=== PATIENT | female | born 1940 | race Caucasian/White ===

== ENCOUNTER 2017-03-22 11:09 | Emergency (ER) | payer OTHER, MEDICARE ==
[~2017-03-22] VITALS: Ht 160 cm; Wt 65.3 kg
[2017-03-22] MEDS ORDERED: PRAVASTATIN SOD10 M2 PO (11:26)
[2017-03-22] MEDS ORDERED: NIFEDIPINE ER60 M1 PO (11:26)
--- NOTE | 2017-03-22 11:49 | ED CARDIAC/CP/PALPITATIONS ---
History of Present Illness General Chief Complaint: General Adult Stated Complaint: HIGH BP Source: patient, old records Exam Limitations: no limitations Vital Signs & Intake/Output Vital Signs & Intake/Output ED Intake and Output 03/23 0000 03/22 1200 Intake Total Output Total Balance Patient 144 lb Weight Allergies Coded Allergies: sesame seed (UNKNOWN 03/22/17) Reconcile Medications Hydrochlorothiazide 25 MG TABLET 1 TAB PO DAILY htn Nifedipine (Nifedipine ER) 60 MG TABLET.ER 1 TAB PO DAILY BP (Reported) Pravastatin Sodium 10 MG TABLET 1 TAB PO DAILY CHOLESTEROL (Reported) Triage Note: PT SENT FROM [facility] FOR ELEVATED BP. MANUAL AT THIS TIME 188/112 , DENIES HEADACHE TODAY BUT HAD ONE THE PAST 2 DAYS. ALSO HAD R EAR RINGING THIS AM WHICH IS GONE NOW. DENIES CP/SOB. Triage Nurses Notes Reviewed? yes Onset: Abrupt Duration: day(s): (1), better, constant Timing: single episode today Quality/Severity: mild Activities at Onset: none Associated Symptoms: denies HPI: The 6-year-old female history of hypertension, high cholesterol presents to ER for evaluation after she had a well checkup appointment with her primary care this morning was found to be hypertensive. In the office the patient states her blood pressure was 220 systolic. She states over the past 3 days she's had intermittent posterior headache and ringing in her right ear that has since resolved and been improved with Tylenol. She denies any vision changes blurry vision double vision chest pain palpitations dizziness lightheadedness. She's been compliant with her nifedipine which he is been on no recent adjustments in her dosage. She is otherwise without any complaints at this time PT SENT FROM [facility] FOR ELEVATED BP. MANUAL AT THIS TIME 188/112 , DENIES HEADACHE TODAY BUT HAD ONE THE PAST 2 DAYS. ALSO HAD R EAR RINGING THIS AM WHICH IS GONE NOW. DENIES CP/SOB. (ARPAN ESCOBAR) Past History Travel History Traveled to [place] past 21 day No Medical History Any Pertinent Medical History? see below for history Neurological: NONE EENT: NONE Cardiovascular: hypertension, hyperlipidemia Respiratory: NONE Gastrointestinal: NONE Hepatic: NONE Renal: NONE Musculoskeletal: NONE Psychiatric: NONE Endocrine: NONE Blood Disorders: NONE Cancer(s): NONE RETORT OPERATOR/Reproductive: NONE Surgical History Surgical History: non-contributory Psychosocial History What is your primary language Wolof Tobacco Use: Never used ETOH Use: denies use Illicit Drug Use: denies illicit drug use Family History Hx Contributory? No (ARPAN ESCOBAR) Review of Systems Review of Systems Constitutional: Reports: see HPI. Comments Review of systems: See HPI, All other systems negative. Constitutional, no chills no fever, no malaise HEENT: No visual changes no sore throat no congestion, Cardiovascular: No chest pain , no palpitation Skin: no rashes, no change in skin Respiratory: No dyspnea no cough no sputum GI: No nausea no vomiting, no diarrhea, : No dysuria Muscle skeletal: No joint pain, no joint swelling, no back pain, no neck pain, Neurologic: No numbness no confusion, headache Psych: No stress Heme/endocrine: No bruising no bleeding Immunology: No lymphadenopathy (ARPAN ESCOBAR) Physical Exam Physical Exam General Appearance: well developed/nourished, no apparent distress, alert, awake , comfortable Cardiovascular: regular rate/rhythm Comments: Well-developed well-nourished person in no acute distress Head/Face: Atraumatic, no maxillary/frontal sinus tenderness, no facial swelling Eyes: PERRL, EOMI, no conjunctival injection. No nystagmus Ear:External auditory canal and Tympanic membranes clear, no erythema, no FB. Nose: atraumatic.Normal inspection: No bleeding Throat: Moist mucous membranes.Pharynx normal. No pharyngeal erythema/exudate seen. No stridor/drooling or assymetry. No swelling or edema. Neck: Supple, no lymphadenopathy, FROM Neck: Supple, no lymphadenopathy, normal range of motion Back: Nontender, no CVA tenderness. Full range of motion Cardiovascular: Regular rate and rhythms no murmurs rubs Respiratory: No respiratory distress. Patient speaking in full complete sentences. Breath sounds clear to auscultation bilaterally: NO W/R/R Abdomen: Soft, nontender nondistended Extremity: No edema, full range of motion of extremities Neuro: Alert oriented x3, motor sensory normal, cranial nerves II through XII grossly intact. There were no obvious focal neurologic abnormalities. Skin: No appreciable rash on exposed skin, skin is warm and dry. Psych: Mood and affect is normal, memory and judgment is normal. Core Measures ACS in differential dx? No Severe Sepsis Present: No Septic Shock Present: No (ARPAN ESCOBAR) Progress Differential Diagnosis: AMI, HYPERTENSIVE URGENCY VERSUS EMERGENCY, ELECTROLYTE ABNORMALITY, ACUTE KIDNEY INJURY Plan of Care: Orders Procedure Date/time Status TROPONIN LEVEL 03/22 1148 Complete COMPREHENSIVE METABOLIC PANEL 03/22 1148 Complete CBC WITHOUT DIFFERENTIAL 03/22 1148 Complete EKG 03/22 1125 Active Laboratory Tests 03/22/17 1144: Anion Gap 9, Estimated GFR > 60, BUN/Creatinine Ratio 16.3, Glucose 85, Calcium 9.6, Total Bilirubin 0.6, AST 19, ALT 27, Alkaline Phosphatase 70, Troponin I < 0.01, Total Protein 7.3, Albumin 4.5, Globulin 2.8, Albumin/Globulin Ratio 1.6, CBC w Diff NO MAN DIFF REQ, RBC 4.44, MCV 91.6, MCH 30.8, RDW 12.9, MPV 7.6, Gran % 64.6, Lymphocytes % 25.7, Monocytes % 7.9, Eosinophils % 1.3, Basophils % 0.5, Absolute Granulocytes 3.5, Absolute Lymphocytes 1.4, Absolute Monocytes 0.4 , Absolute Eosinophils 0.1, Absolute Basophils 0, PUBS MCHC 33.7 Old records reviewed patient denies any symptoms including headache at this time medically with hydrochlorothiazide 25 mg by mouth case discussed with Dr. ZHANG CALL PALCED TO PTS PMD 1330 STILL PENDING CALLBACK FROM PMD Patient has remained normotensive here in the ER after being medicated with hctz without any complaints no headache dizziness lightheadedness she is ambulatory with steady gait I have been unable to get in contact with her primary care the patient does not want to wait anymore. Advised that she follow-up with her this week prescription for hydrochlorothiazide check her blood pressures at home with a home cuff return cautions were discussed at least including warning signs of elevated blood pressure she feels comfortable this plan I spoke with Kiet the patient's primary care physician after the patient had left she is in agreement with plan she'll follow the patient tomorrow (ARPAN ESCOBAR) Initial ED EKG: nsr at 70, , no acute st seg chagnes normal axis (ARPAN ESCOBAR) Departure Departure Time of Disposition: 1358 Disposition: HOME OR SELF CARE Condition: Stable Clinical Impression Primary Impression: HTN (hypertension) Referrals: KIET ZHOU APRN (PCP/Family) Additional Instructions: As discussed check her blood pressure with a home blood pressure cuff twice a day. write these numbers down and follow-up with her primary care physician later this week. Continue taking your blood pressure medication the nifedipine as in addition to the new medicine the hydrochlorothiazide. This was sent to your pharmacy. Return to ER anytime sooner with any concerns Departure Forms: Customer Survey General Discharge Information Prescriptions: Current Visit Scripts Hydrochlorothiazide 1 TAB PO DAILY #30 TAB (ARPAN ESCOBAR) PA/[employer] Co-Sign Statement Statement: ED Attending supervision documentation- [X] I saw and evaluated the patient. I have also reviewed all the pertinent lab results and diagnostic results. I agree with the findings and the plan of care as documented in the PA's/[employer]ER [employer] OILER's documentation. [X] I have reviewed the ED Record and agree with the PA's/[employer]ER [employer] OILER's documentation. [] Additions or exceptions (if any) to the PAs/[employer]ER [employer] OILER's note and plan are summarized below: [] (DAREN BARNETT,LUIS) Critical Care Note Critical Care Note Critical Care Time: non-applicable (ARPAN ESCOBAR)
[2017-03-22 11:57] LABS: ABSOLUTE BASOPHIL COUNT 0 /CUMM (0.0-0.2); ABSOLUTE EOSINOPHIL COUNT 0.1 /CUMM (0.0-0.7); BASOPHIL % 0.5 % (0.0-2.0); EOSINOPHIL % 1.3 % (0-5); GRANULOCYTE % 64.6 % (42.2-75.2); HEMATOCRIT 40.6 % (37-47); MEAN CORPUSCULAR HGB 30.8 PG (27.0-31.0); MEAN CORPUSCULAR HGB CONC 33.7 G/DL (33.0-37.0); MEAN CORPUSCULAR VOLUME 91.6 FL (81.0-99.0); MEAN PLATELET VOLUME 7.6 FL (7.4-10.4); PLATELET COUNT 266 /CUMM (130-400); RBC DISTRIBUTION WIDTH 12.9 % (11.5-14.5); RED BLOOD CELL CT 4.44 /CUMM (4.20-5.40); WHITE BLOOD CELL COUNT 5.4 /CUMM (4.8-10.8)
[2017-03-22 12:01] LABS: ABSOLUTE GRANULOCYTE CT 3.5 /CUMM (1.4-6.5); ABSOLUTE LYMPH COUNT 1.4 /CUMM (1.2-3.4); ABSOLUTE MONOCYTE COUNT 0.4 /CUMM (0.10-0.60)
[2017-03-22 12:44] VITALS: BP 160/80
[2017-03-22] MEDS ORDERED: HYDROCHLOROTHIA25 M1 PO (13:59)
== END 2017-03-22 14:23 ==
LOC: ERH 11:09
PROVIDERS: Physician Assistant Medical
DX: I10 Essential (primary) hypertension (principal)
CPT/HCPCS: 93005; 93010